=== PATIENT | male | born 1945 | race Caucasian/White ===

== ENCOUNTER 2016-11-19 10:52 | Outpatient (CLI) | payer MEDICARE, OTHER ==
[2016-11-19 12:00] LABS: eGFR (African) > 60; eGFR (Non-African) > 60
== END 2016-11-19 10:53 ==
LOC: LAB 10:52
PROVIDERS: ATTEND Internal Medicine
DX: E78.5 Hyperlipidemia, unspecified (principal); Z00.00 Encounter for general adult medical examination without abnormal findings; Z12.5 Encounter for screening for malignant neoplasm of prostate
CPT/HCPCS: 36415; 80053; 80061; 84153

== ENCOUNTER 2017-06-17 14:56 | Outpatient (CLI) | payer MEDICARE, OTHER ==
[2017-06-18 12:11] LABS: ADENOVIRUS DNA NEGATIVE (NEGATIVE); BORDETELLA PERTUSSIS DNA NEGATIVE (NEGATIVE); SOURCE: NO SWAB IN M6
== END 2017-06-17 14:57 ==
LOC: LAB 14:56
PROVIDERS: ATTEND Internal Medicine
DX: R05 Cough (principal); J06.9 Acute upper respiratory infection, unspecified
CPT/HCPCS: 87486; 87581; 87633; 87798